=== PATIENT | female | born 1970 | race Caucasian/White ===

== ENCOUNTER 2016-11-16 18:51 | Emergency (ER) | payer BC ==
[2016-11-16 20:10] VITALS: BP 139/58
[2016-11-16] MEDS ORDERED: Acetaminophen/Codeine 300-30 MG Tab PO ONE (20:16)
--- NOTE | 2016-11-17 03:14 | ER ---
DATE SEEN: 11/16/2016 CHIEF COMPLAINT: Pain, left ankle. HISTORY OF PRESENT ILLNESS: A 46-year-old female with left ankle pain since yesterday [place]. She tripped and felt a pop and she started to have pain on weightbearing. Ibuprofen and Excedrin have not been helpful. PAST MEDICAL HISTORY: Hypertension. ALLERGIES: None. REVIEW OF SYSTEMS: All other systems negative. PHYSICAL EXAMINATION: VITAL SIGNS: Temperature is normal. Blood pressure 139/58. EXTREMITIES: Mild effusion of the left ankle, tenderness anteriorly, but normal range of motion and normal peripheral pulses. IMAGING STUDIES: X-ray image of the left ankle was negative. IMPRESSION: Sprain, ankle. PLAN: Elevation, ice, Tylenol No.3 one tablet t.i.d. p.r.n., compression with an Aircast. Follow up p.r.n. Return to the ED with any worsening symptoms. /[id number] 2013 [id number] BENOIT/MARSHAL
--- NOTE | 2016-11-18 11:25 | CR ---
INDICATION: Injured last night with pain on top of foot and medially at the ankle. LEFT ANKLE: Three views of the left ankle revealed moderately large plantar calcaneal spur with a tiny posterior calcaneal spur. There is question of an avulsion chip fracture fragment at the inferior aspect of the medial malleolus; however, there is an appearance of endosteal sclerosis and possibly periosteal new bone formation, suggesting an old fracture site that is not healed, and hypertrophic changes suggesting mild post-traumatic osteoarthritis in that area additionally. Otherwise, the ankle mortise appeared intact with good position and normal appearing joint space. MTDD
== END 2016-11-16 20:25 | disposition home or self-care (01) ==
LOC: FB.ED 18:51
DX: S93.402A Sprain of unspecified ligament of left ankle, initial encounter (principal); I10 Essential (primary) hypertension; W18.40XA Slipping, tripping and stumbling without falling, unspecified, initial encounter; Y93.41 Activity, dancing
CPT/HCPCS: 73610-LT; 99283; A9270-GY